=== PATIENT | male | born 1950 | race African-American/Black ===

== ENCOUNTER → 2019-04-01 | Outpatient (CLI) | payer MEDICARE ==
[~2019-04-01] MED LIST: AMLO2.5T45 MT; ASPI-986 MT; FENO145 MT; METO-385 MT; SIMV20TA2 MT
== END | disposition home or self-care (01) ==
LOC: RAD 13:04
PROVIDERS: ATTEND Specialist
DX: R07.9 Chest pain, unspecified (principal); Z98.61 Coronary angioplasty status
CPT/HCPCS: 71046

== ENCOUNTER → 2020-04-30 | Outpatient (CLI) | payer BC, MEDICARE, OTHER ==
[~2020-04-30] MED LIST changes: +ATOR40TA70 MT; +ICOS1CAP PO
== END | disposition home or self-care (01) ==
LOC: LAB 09:09
PROVIDERS: ATTEND Specialist
DX: Z01.812 Encounter for preprocedural laboratory examination (principal); Z20.828 Contact with and (suspected) exposure to other viral communicable diseases
CPT/HCPCS: C9803; U0003

== ENCOUNTER 2020-05-01 06:10 | Day surgery (SDC) | payer OTHER ==
[~2020-05-01] VITALS: Ht 185.4 cm; Wt 73.5 kg
[~2020-05-01 06:10] MED LIST changes: -ATOR40TA70 MT; -ICOS1CAP PO
[2020-05-01] MEDS ORDERED: NITROGLYCERIN 50MCG/ML 10ML VIAL (CATH LAB) IV ONE (07:00)
[2020-05-01] MEDS ORDERED: NICARDIPINE 100MCG/ML 10ML VIAL (CATH LAB) IV ONE (07:00)
[2020-05-01] MEDS ORDERED: ATOR40TA70 MT (07:31)
[2020-05-01] MEDS ORDERED: ICOS1CAP PO (07:31)
[2020-05-01] MEDS ORDERED: LIDOCAINE HCL 1% 20ML VIAL (Pyxis) INJ ONE (07:32)
[2020-05-01] MEDS ORDERED: IODIXANOL 320MG/ML 100 ML BOTTLE IV ONE (07:33)
[2020-05-01] MEDS ORDERED: FENTANYL CITRATE/PF 50MCG/ML 2ML VIAL ONE ×2 (07:33→08:42)
[2020-05-01] MEDS ORDERED: MIDAZOLAM HCL 2 MG/2 ML VIAL ONE ×2 (07:33→08:28)
[2020-05-01] MEDS ORDERED: HEPARIN SODIUM 1,000 UNIT/1ML VIAL IV ONE (07:35)
[2020-05-01] MEDS ORDERED: ASPIRIN/SOD BICARB/CITRIC ACID 324MG TAB EFF ONE (07:37)
[2020-05-01] MEDS ORDERED: MORPHINE SULFATE 2 MG/ML CPJ (NOT FOR IM USE) IV PRN (09:15)
[2020-05-01] MEDS ORDERED: ATROPINE SULFATE 1MG/10ML SYR IV PRN (09:15)
[2020-05-01] MEDS ORDERED: ONDANSETRON HCL 4MG/2ML INJ IV PRN (09:15)
[2020-05-01] MEDS ORDERED: ACETAMINOPHEN 325MG TABLET PO PRN (09:15)
== END 2020-05-01 12:55 | disposition home or self-care (01) ==
LOC: CCL 06:10
PROVIDERS: ATTEND Specialist
DX: I25.10 Atherosclerotic heart disease of native coronary artery without angina pectoris (principal); E78.5 Hyperlipidemia, unspecified; I10 Essential (primary) hypertension; E03.9 Hypothyroidism, unspecified; Z79.82 Long term (current) use of aspirin; Z79.899 Other long term (current) drug therapy; Z98.890 Other specified postprocedural states; Z82.49 Family history of ischemic heart disease and other diseases of the circulatory system
CPT/HCPCS: 93459; C1769; C1887; C1893; J1644; J2250; J3010; J3490; Q9967